=== PATIENT | male | born 1965 | race Asian ===

== ENCOUNTER 2016-10-23 19:22 | Inpatient (IN) | payer OTHER ==
[~2016-10-23] VITALS: Ht 177.8 cm; Wt 94.5 kg
[~2016-10-23 19:22] MED LIST: ALLO100T; RANI-281 PO
[2016-10-23 19:26] VITALS: BP_SYST 108
[2016-10-23] MEDS ORDERED: NACL 0.9% 1,000 ML IV ONE ×2 (20:15→21:30)
[2016-10-23] MEDS ORDERED: ONDANSETRON HCL 4 MG/2 ML VIAL IVP ONE (20:15)
[2016-10-23] MEDS ORDERED: DEXAMETHASONE SOD PHOSPHATE 10 MG/ML VIAL IVP ONE (20:15)
[2016-10-23] MEDS ORDERED: MORPHINE 4 MG/ML INJ. SYRINGE IVP ONE (20:15)
[2016-10-23] MEDS ORDERED: KETOROLAC TROMETHAMINE 30 MG VIAL IVP ONE (20:15)
[2016-10-23] MEDS ORDERED: ACETAMINOPHEN 500 MG TABLET PO ONE (20:15)
[2016-10-23 21:27] LABS: BASOPHILS % (AUTO) 0.2 % (0.0-2.0); EOSINOPHILS # (AUTO) 0.1 K/uL (0.0-0.4); EOSINOPHILS % (AUTO) 0.7 % (0.0-4.0); HEMATOCRIT 38.4 % (36-54); LYMPHOCYTES # (AUTO) 1.4 K/uL (1.0-5.5); LYMPHOCYTES % (AUTO) 10.1 % (20.5-51.5); MEAN CORPUSCULAR HEMOGLOBIN 30 pg (27-31); MEAN CORPUSCULAR HGB CONC 34 % (32-36); MEAN CORPUSCULAR VOLUME 88 fL (79.0-98.0); MONOCYTES # (AUTO) 1.3 K/uL (0.0-1.0); MONOCYTES % (AUTO) 9.7 % (1.7-9.3); NEUTROPHILS # (AUTO) 10.6 K/uL (1.8-7.7); NEUTROPHILS % (AUTO) 79.3 % (40.0-70.0); PLATELET COUNT (AUTO) 248 K/uL (130-430); RED BLOOD CELL COUNT(AUTO) 4.38 MIL/uL (4.2-6.2); RED CELL DISTRIBUTION WIDTH 11.7 % (9.0-15.0); WHITE BLOOD COUNT (AUTO) 13.4 K/uL (4.8-10.8)
[2016-10-23] MEDS ORDERED: MORPHINE SULFATE 10 MG/ML VIAL IVP ONE (21:30)
[2016-10-23 21:48] LABS: INR 0.9 (0.80-1.20)
[2016-10-23 22:02] LABS: CALCIUM 9.6 mg/dL (8.4-11.0); CREATININE 1.12 mg/dL (0.55-1.30); POTASSIUM 3.8 mmol/L (3.5-5.1)
[2016-10-23 22:07] LABS: ALBUMIN 3.9 g/dL (3.4-4.8); TOTAL BILIRUBIN 0.5 mg/dL (0.0-1.0)
[2016-10-24] MEDS ORDERED: HYDROmorphone 2 MG/ML VIAL IVP PRN (01:30)
[2016-10-24 01:43] VITALS: BP_SYST 125
[2016-10-24] MEDS: NACL 0.9% 1,000 ML IV SCH ×2 (02:24→15:55)
[2016-10-24 04:08] VITALS: BP_SYST 102
[2016-10-24 08:00] VITALS: BP_SYST 117
[2016-10-24] MEDS ORDERED: ACETAMINOPHEN 325 MG TABLET PO PRN (10:45)
[2016-10-24] MEDS ORDERED: MORPHINE 2 MG/ML INJ. SYRINGE IVP PRN (10:45)
[2016-10-24] MEDS ORDERED: ONDANSETRON HCL 4 MG/2 ML VIAL IVP PRN (10:45)
[2016-10-24 11:31] LABS: BASOPHILS % (AUTO) 0.2 % (0.0-2.0); HEMATOCRIT 38.3 % (36-54); HEMOGLOBIN 12.4 g/dL (14.0-18.0); LYMPHOCYTES # (AUTO) 0.9 K/uL (1.0-5.5); LYMPHOCYTES % (AUTO) 10.6 % (20.5-51.5); MEAN CORPUSCULAR HEMOGLOBIN 29 pg (27-31); MEAN CORPUSCULAR HGB CONC 33 % (32-36); MEAN CORPUSCULAR VOLUME 89 fL (79.0-98.0); MONOCYTES # (AUTO) 0.6 K/uL (0.0-1.0); MONOCYTES % (AUTO) 6.3 % (1.7-9.3); NEUTROPHILS # (AUTO) 7.3 K/uL (1.8-7.7); NEUTROPHILS % (AUTO) 82.9 % (40.0-70.0); PLATELET COUNT (AUTO) 240 K/uL (130-430); RED BLOOD CELL COUNT(AUTO) 4.31 MIL/uL (4.2-6.2); RED CELL DISTRIBUTION WIDTH 11.8 % (9.0-15.0)
[2016-10-24 11:34] LABS: WHITE BLOOD COUNT (AUTO) 8.8 K/uL (4.8-10.8)
[2016-10-24 11:55] LABS: ALBUMIN 3.2 g/dL (3.4-4.8); CREATININE 1.14 mg/dL (0.55-1.30); PHOSPHORUS 2.6 mg/dL (2.7-4.5); POTASSIUM 3.9 mmol/L (3.5-5.1); THYROID STIMULATING HORMONE 0.34 uIu/mL (0.34-4.82); TOTAL BILIRUBIN 0.6 mg/dL (0.0-1.0)
[2016-10-24 12:04] LABS: FREE T4 (FREE THYROXINE) 1.1 ng/dl (0.8-1.5)
[2016-10-24] MEDS ORDERED: KETOROLAC TROMETHAMINE 30 MG VIAL IVP ONE (12:15)
[2016-10-24] MEDS ORDERED: KETOROLAC TROMETHAMINE 30 MG VIAL IVP PRN (12:15)
[2016-10-24] MEDS ORDERED: COLCHICINE 0.6 MG TABLET PO ONE ×2 (12:15→13:25)
[2016-10-24 12:20] VITALS: BP_SYST 130
[2016-10-24 16:20] VITALS: BP_SYST 123
[2016-10-24 18:00] VITALS: BP_SYST 123
[2016-10-24] MEDS ORDERED: DOCUSATE SODIUM 100 MG CAPSULE PO SCH (21:00)
[2016-10-25 05:09] LABS: T4 (THYROXINE) 5.9 ug/dL (4.5-12.0)
[2016-10-25 10:34] LABS: HEMOGLOBIN A1C 5.7 % (4.8-5.6)
== END 2016-10-24 18:45 | disposition home or self-care (01) | DRG 554 ==
LOC: SED 19:22 → SMU 10-24 01:20
PROVIDERS: ADMIT General Practice; ATTEND General Practice
DX: M10.9 Gout, unspecified (principal); E44.0 Moderate protein-calorie malnutrition; L40.9 Psoriasis, unspecified; E83.39 Other disorders of phosphorus metabolism; F43.9 Reaction to severe stress, unspecified; B99.9 Unspecified infectious disease; M19.90 Unspecified osteoarthritis, unspecified site; Z68.29 Body mass index [BMI] 29.0-29.9, adult
CPT/HCPCS: 36415; 80053; 82150-TC; 83036; 83690-TC; 83735-TC; 83880; 84100-TC; 84436; 84439; 84443-TC; 84479; 84550-TC; 85025; 85610-TC; 85730-TC; 86431; 93971; 96361; 96374; 96375; 96376; 99285; J1100; J1170; J1885; J2270; J2405; J7030

== ENCOUNTER 2018-09-29 16:37 | Emergency (ER) | payer OTHER ==
[~2018-09-29] VITALS: Ht 177.8 cm; Wt 99.8 kg
[2018-09-29 16:37] VITALS: BP_SYST 160
[2018-09-29] MEDS ORDERED: ASPIRIN 81 MG TAB.CHEW PO ONE (18:45)
[2018-09-29 19:01] LABS: BASOPHILS # (AUTO) 0.1 K/uL (0.0-0.2); BASOPHILS % (AUTO) 1.2 % (0.0-2.0); HEMATOCRIT 40.6 % (36-54); HEMOGLOBIN 13.9 g/dL (14.0-18.0); LYMPHOCYTES # (AUTO) 2.7 K/uL (1.0-5.5); LYMPHOCYTES % (AUTO) 29.5 % (20.5-51.5); MEAN CORPUSCULAR HEMOGLOBIN 32 pg (27-31); MEAN CORPUSCULAR HGB CONC 34 % (32-36); MEAN CORPUSCULAR VOLUME 94 fL (79.0-98.0); MONOCYTES # (AUTO) 1.2 K/uL (0.0-1.0); MONOCYTES % (AUTO) 13.6 % (1.7-9.3); NEUTROPHILS % (AUTO) 55.7 % (40.0-70.0); PLATELET COUNT (AUTO) 177 K/uL (130-430); RED BLOOD CELL COUNT(AUTO) 4.32 MIL/uL (4.2-6.2); RED CELL DISTRIBUTION WIDTH 12.3 % (9.0-15.0)
[2018-09-29 20:09] LABS: CALCIUM 9.6 mg/dL (8.4-11.0); CREATININE 1.03 mg/dL (0.55-1.30); POTASSIUM 3.7 mmol/L (3.5-5.1)
[2018-09-29 20:14] LABS: ALBUMIN 3.5 g/dL (3.4-4.8); TOTAL BILIRUBIN 0.4 mg/dL (0.0-1.0)
[2018-09-29 20:47] VITALS: BP_SYST 125
== END 2018-09-29 20:47 | disposition home or self-care (01) ==
LOC: SED 16:37
DX: R07.89 Other chest pain (principal); F43.9 Reaction to severe stress, unspecified; Z87.442 Personal history of urinary calculi
CPT/HCPCS: 36415; 71045; 80053; 84484; 85025; 93005; 99284

== ENCOUNTER 2019-04-08 16:30 | Emergency (ER) | payer OTHER ==
[~2019-04-08] VITALS: Ht 177.8 cm; Wt 104.3 kg
[2019-04-08 16:52] VITALS: BP_SYST 143
[2019-04-08] MEDS ORDERED: APRE1TAB2 PO (17:24)
[2019-04-08] MEDS ORDERED: ALL300 PO (17:24)
[2019-04-08] MEDS ORDERED: PRED-428 PO (17:24)
[2019-04-08] MEDS ORDERED: COLC0.6T67 PO (17:24)
[2019-04-08] MEDS ORDERED: MORPHINE 2 MG/ML INJ. SYRINGE IM ONE ×2 (17:45→18:45)
[2019-04-08 20:40] VITALS: BP_SYST 123
== END 2019-04-08 20:40 | disposition home or self-care (01) ==
LOC: SED 16:30
DX: M10.9 Gout, unspecified (principal); Z87.442 Personal history of urinary calculi; Z79.899 Other long term (current) drug therapy
CPT/HCPCS: 96372; 99284; J2270

== ENCOUNTER 2021-10-02 12:03 | Emergency (ER) | payer OTHER ==
[~2021-10-02] VITALS: Ht 177.8 cm; Wt 104.3 kg
[~2021-10-02 12:03] MED LIST changes: +ALBMDI INH; +ALL300 PO; -ALLO100T; +APIX2.5T PO; +APRE1TAB2 PO; +ASC500 PO; +CHOL500013 PO; +COLC0.6T67 PO; +DEXA6TAB5 PO; +DOXY100C5 PO; +FAMO20TA8 PO; +PHEN180L4 PO; +PRED-428 PO; -RANI-281 PO
--- NOTE | 2021-10-02 12:10 | NUR ---
DR GOMEZ EVALUATING PT AT BEDSIDE
[2021-10-02 12:13] VITALS: BP_SYST 142
[2021-10-02] MEDS ORDERED: KETOROLAC TROMETHAMINE 60 MG/2 ML VIAL IM ONE (12:15)
[2021-10-02] MEDS ORDERED: HYDROcodone/ACETAMIN 10-325 MG TAB PO ONE (12:15)
[2021-10-02 12:25] VITALS: BP_SYST 142
[2021-10-02 12:36] LABS: BASOPHILS # (AUTO) 0.1 K/uL (0.0-0.2); BASOPHILS % (AUTO) 0.7 % (0.0-2.0); EOSINOPHILS # (AUTO) 0.1 K/uL (0.0-0.4); HEMOGLOBIN 13.5 g/dL (14.0-18.0); RED CELL DISTRIBUTION WIDTH 12.9 % (9.0-15.0)
[2021-10-02 12:47] LABS: EOSINOPHILS % (AUTO) 0.6 % (0.0-4.0); LYMPHOCYTES # (AUTO) 2.4 K/uL (1.0-5.5); LYMPHOCYTES % (AUTO) 16.9 % (20.5-51.5); MEAN CORPUSCULAR HEMOGLOBIN 31 pg (27-31); MEAN CORPUSCULAR HGB CONC 35 % (32-36); MEAN CORPUSCULAR VOLUME 89 fL (79.0-98.0); MONOCYTES # (AUTO) 1.4 K/uL (0.0-1.0); NEUTROPHILS # (AUTO) 10.3 K/uL (1.8-7.7); NEUTROPHILS % (AUTO) 71.8 % (40.0-70.0); WHITE BLOOD COUNT (AUTO) 14.4 K/uL (4.8-10.8)
--- NOTE | 2021-10-02 12:50 | NUR ---
56YO M, KNOWN CASE OF GOUT AND PORIATIC ARTHRITIS, C/O RIGHT KNEE PAIN SINCE LAST NIGHT. PAIN 12/02. ERMD MADE AWARE OF PT STATUS.
[2021-10-02 12:53] LABS: PLATELET COUNT (AUTO) 185 K/uL (130-430)
[2021-10-02 12:56] LABS: ALBUMIN 3.5 g/dL (3.4-4.8); C-REACTIVE PROTEIN QUANT 1.8 mg/dL (0-0.5); CALCIUM 8.5 mg/dL (8.4-11.0); CREATININE 1.15 mg/dL (0.55-1.30); POTASSIUM 3.6 mmol/L (3.5-5.1); TOTAL BILIRUBIN 0.5 mg/dL (0.0-1.0); URIC ACID 7.9 mg/dL (2.4-7.0)
[2021-10-02] MEDS ORDERED: HYDR-3917 PO (13:36)
[2021-10-02] MEDS ORDERED: IBUP-1971 PO (13:36)
--- NOTE | 2021-10-02 13:58 | NUR ---
A/OX4 VSS VERBALIZED UNDERSTANDING OF DC INSTRUCTIONS ALL QUESTIONS ANSWERED AMBULATED WITH STEADY GAIT
== END 2021-10-02 13:58 | disposition home or self-care (01) ==
LOC: SED 12:03
DX: M10.9 Gout, unspecified (principal); M25.561 Pain in right knee; Z87.442 Personal history of urinary calculi; Z79.899 Other long term (current) drug therapy
CPT/HCPCS: 99284; 80053; 84550; 85025; 86140; 36415; 73560; 96372; J1885